=== PATIENT | male | born 1940 | race Caucasian/White ===

== ENCOUNTER 2023-09-02 17:29 | Emergency (ER) | payer OTHER ==
[~2023-09-02] VITALS: Ht 172.7 cm; Wt 93.0 kg
[2023-09-02] MEDS ORDERED: SULF800T23 PO (20:43)
[2023-09-02] MEDS: cefTRIAXone SOD 1,000 MG VL IM ONE (21:01)
[2023-09-02] MEDS: TETANUS-DIPTH-ACEL PERTUSSIS 0.5ML SYR Tdap IM ONE (21:01)
[2023-09-02 21:10] VITALS: BP 157/80; PULSE 60; RESP 18; TEMP 98.3; O2SAT 94
== END 2023-09-02 21:20 | disposition home or self-care (01) ==
LOC: ER 17:29
DX: L03.312 Cellulitis of back [any part except buttock and flank] (principal); E11.9 Type 2 diabetes mellitus without complications; Z98.890 Other specified postprocedural states; Z79.899 Other long term (current) drug therapy
CPT/HCPCS: 90471; 90715; 96372; 99283; J0696